=== PATIENT | female | born 2005 | race African-American/Black ===

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

== ENCOUNTER 2023-10-26 15:48 | Emergency (ER) | payer OTHER ==
[~2023-10-26] VITALS: Ht 170.2 cm; Wt 93.2 kg
[~2023-10-26 15:48] MED LIST: ACET-910 PO; IBUP-1114 PO
[2023-10-26 17:25] LABS: HCG, SERUM QUALITATIVE NEGATIVE (NEGATIVE)
[2023-10-26 18:11] VITALS: BP 135/88; TEMP 98.4; O2SAT 99
== END 2023-10-26 20:54 | disposition left against medical advice (07) ==
LOC: M ED 15:48
DX: Z53.21 Procedure and treatment not carried out due to patient leaving prior to being seen by health care provider (principal)

== ENCOUNTER 2023-11-05 00:31 | Inpatient (IN) | payer OTHER ==
[~2023-11-05] VITALS: Ht 170.2 cm; Wt 77.2 kg
[2023-11-05 01:28] LABS: HEMATOCRIT 32.6 % (36.0-47.0); HEMOGLOBIN 10.2 g/dl (12.0-15.5); MEAN CORPUSCULAR HEMOGLOBIN 28.2 pg (27.0-33.0); MEAN CORPUSCULAR HGB CONC 31.3 g/dl (32.0-36.5); MEAN CORPUSCULAR VOLUME 90.1 fl (80.0-96.0); PLATELET COUNT, AUTOMATED 242 10^3/uL (150-450); RED BLOOD COUNT 3.62 10^6/uL (4.00-5.40); WHITE BLOOD COUNT 7.3 10^3/uL (4.0-10.0)
[2023-11-05 01:52] LABS: AMPHETAMINES LEVEL URINE NEGATIVE (NEGATIVE); BARBITURATES URINE NEGATIVE (NEGATIVE); BENZODIAZEPINES URINE NEGATIVE (NEGATIVE); COCAINE METABOLITE URINE NEGATIVE (NEGATIVE)
[2023-11-05 01:53] LABS: CANNABINOIDS URINE NEGATIVE (NEGATIVE); METHADONE URINE NEGATIVE (NEGATIVE); OPIATES URINE NEGATIVE (NEGATIVE); PHENCYCLIDINE URINE NEGATIVE (NEGATIVE)
[2023-11-05 01:55] LABS: ETHYL ALCOHOL (ETHANOL) < 0.003 % (0.000-0.010)
[2023-11-05 01:56] LABS: ALBUMIN 3.8 G/DL (3.2-5.2); ALKALINE PHOSPHATASE 71 U/L (46-116); ALT/SGPT 15 U/L (7.0-40); AST/SGOT 16 U/L (<34); BILIRUBIN,DIRECT 0.2 MG/DL (<0.4); BILIRUBIN,TOTAL 0.4 MG/DL (0.3-1.2); BLOOD UREA NITROGEN 11 MG/DL (9-23); CALCIUM LEVEL 8.6 MG/DL (8.5-10.1); CARBON DIOXIDE LEVEL 26 MMOL/L (20-31); CHLORIDE LEVEL 109 MMOL/L (98-107); CREATININE FOR GFR 0.78 MG/DL (0.55-1.30); GLUCOSE, FASTING 83 MG/DL (60-100); POTASSIUM SERUM 4.1 MMOL/L (3.5-5.1); SALICYLATE LEVEL < 3.0 MG/DL (<30); SODIUM LEVEL 138 MMOL/L (136-145); TOTAL PROTEIN 7.1 G/DL (5.7-8.2)
[2023-11-05 01:59] LABS: THYROID STIMULATING HORMONE 3.125 uIU/ML (0.48-4.17)
[2023-11-05] MEDS ORDERED: traZODone 50 MG TAB PO PRN (04:50)
[2023-11-05] MEDS ORDERED: MOM 30ML SUSPENSION UDC PO PRN (04:50)
[2023-11-05] MEDS ORDERED: ACETAMINOPHEN TAB 650MG DOSE (2X325MG) PO PRN (04:50)
[2023-11-05] MEDS ORDERED: MAALOX 30 ML SUSP *UDC PO PRN (04:50)
[2023-11-05] MEDS ORDERED: IBUPROFEN 400MG TAB PO PRN (04:50)
[2023-11-05] MEDS ORDERED: diphenhydrAMINE 25MG CAP PO PRN (04:50)
[2023-11-05] MEDS ORDERED: MIRA33506 PO (05:43)
[2023-11-05] MEDS ORDERED: APPLTAB2 PO (05:43)
[2023-11-05] MEDS ORDERED: ONDA-83 PO (05:43)
[2023-11-05 05:55] VITALS: BP 132/84; TEMP 98.2; O2SAT 99
[2023-11-05] MEDS ORDERED: HOME MED LIST COMPLETE! XX SCH (05:55)
[2023-11-05 06:07] VITALS: BP 121/76; TEMP 98; O2SAT 100
[2023-11-05] MEDS: LORazepam 2 MG TAB PO ONE (14:00)
[2023-11-05] MEDS: diphenhydrAMINE 50MG CAP PO ONE (14:00)
[2023-11-05 17:15] VITALS: BP 137/80; TEMP 97.5; O2SAT 100
[2023-11-06 06:34] VITALS: BP 125/64; TEMP 98.8; O2SAT 100
[2023-11-06 07:10] LABS: PERCENT SATURATION 25.7 % (13.2-45.0)
[2023-11-06 07:13] LABS: FOLATE 16.14 NG/ML (>5.4)
[2023-11-06] MEDS ORDERED: SERT50TA29 PO (08:48)
[2023-11-06] MEDS ORDERED: FERROUS SULFATE 325MG TAB PO SCH (09:00)
[2023-11-06] MEDS: SERTRALINE HCL 50 MG TAB PO SCH (09:58)
== END 2023-11-06 12:14 | disposition home or self-care (01) | DRG 881 ==
LOC: M ED 00:31 → M ED INP 04:46 → M PSY 05:25
PROVIDERS: ADMIT Psychiatry & Neurology Psychiatry; ATTEND Psychiatry & Neurology Child & Adolescent Psychiatry
DX: F43.21 Adjustment disorder with depressed mood (principal); F17.200 Nicotine dependence, unspecified, uncomplicated; D50.9 Iron deficiency anemia, unspecified; Z81.8 Family history of other mental and behavioral disorders; Z56.2 Threat of job loss